=== PATIENT | male | born 1955 | race Two or more races ===

== ENCOUNTER 2021-05-14 06:55 | Day surgery (SDC) | payer OTHER ==
[2021-05-14] MEDS ORDERED: IODIXANOL 320 MG/ML 100 ML VIAL ONE (07:14)
[2021-05-14] MEDS ORDERED: HEPARIN SODIUM 1000 UNITS/NS 500 ML ONE (07:14)
[2021-05-14] MEDS ORDERED: SODIUM BICARBONATE 50 MEQ/50 ML VIAL ONE (07:14)
[2021-05-14] MEDS ORDERED: LIDOCAINE/PF 1% 30 ML VIAL ONE (07:14)
[2021-05-14] MEDS ORDERED: IODIXANOL 320 MG/ML 150 ML VIAL ONE (07:14)
[2021-05-14] MEDS ORDERED: IODIXANOL 320 MG/ML 50 ML VIAL ONE (07:14)
[2021-05-14] MEDS ORDERED: SODIUM CHLORIDE 0.9% 1,000 ML ONE (07:30)
[2021-05-14] MEDS ORDERED: SODIUM CHLORIDE 0.9% 1,000 ML IV ONE (07:30)
[2021-05-14 08:06] VITALS: BP 117/79
[2021-05-14 08:10] LABS: GLUCOMETER DEV NAME(LOC) SDS.; GLUCOSE,POINT OF CARE 158 MG/DL (70-110)
[2021-05-14] MEDS ORDERED: FentaNYL CITRATE PF 100 MCG/2 ML VIAL ONE (08:13)
[2021-05-14] MEDS ORDERED: MIDAZOLAM HCL 2 MG/2 ML VIAL ONE (08:13)
[2021-05-14] MEDS ORDERED: FentaNYL CITRATE PF 100 MCG/2 ML VIAL IVP ONE ×2 (08:45→09:00)
[2021-05-14] MEDS ORDERED: HEPARIN SODIUM 1000 UNITS/NS 1,000 ML IARTER ONE (08:45)
[2021-05-14] MEDS ORDERED: IODIXANOL 320 MG/ML 150 ML VIAL IARTER ONE (08:45)
[2021-05-14] MEDS ORDERED: LIDOCAINE 1% 30 ML/SOD BICARB 8.4% 4 ML SQ ONE (08:45)
[2021-05-14] MEDS ORDERED: MIDAZOLAM HCL 2 MG/2 ML VIAL IVP ONE ×2 (08:45→09:00)
[2021-05-14] MEDS ORDERED: HEPARIN SODIUM,PORCINE 5,000 UNITS/ML VIAL IVP ONE (09:00)
[2021-05-14 09:30] VITALS: BP 114/75
[2021-05-15] MEDS ORDERED: ASPIRIN 81 MG CHEWABLE TABLET PO SCH (09:00)
== END 2021-05-14 13:55 | disposition home or self-care (01) ==
LOC: CATHLAB 06:55
PROVIDERS: ATTEND Internal Medicine Interventional Cardiology
DX: I70.238 Atherosclerosis of native arteries of right leg with ulceration of other part of lower leg (principal); E11.51 Type 2 diabetes mellitus with diabetic peripheral angiopathy without gangrene; E78.5 Hyperlipidemia, unspecified; I10 Essential (primary) hypertension; Z79.899 Other long term (current) drug therapy; Z98.890 Other specified postprocedural states
CPT/HCPCS: 37224; 75630; 82962; 93005; 99152; C1725; C1760; C1887; J1644 ×2; J2250; J3010; J3490 ×2; J7030; Q9967; 36200; 75716; 75962; Z7610